=== PATIENT | female | born 1940 | race Caucasian/White ===

== ENCOUNTER 2016-07-19 01:52 | Emergency (ER) | payer MEDICARE, BC ==
[~2016-07-19] VITALS: Ht 170.2 cm; Wt 78.1 kg
[~2016-07-19 01:52] MED LIST: NO KNOWN MEDICATIONS
[2016-07-19 01:54] VITALS: Ht 170.2 cm; Wt 78.1 kg
--- OUTSIDE RECORDS SUMMARY | 2016-07-19 01:56 | XMS REPORT | Continuity of Care Document ---
Author Author [facility] Organization [facility] Address Unknown Phone Unavailable Support Name Relationship Address Phone ERVIN MACARIO Caregiver [address] [place], [place] [id number] TREMAINE MARKS MD Caregiver [address] [place] [address] [place] [address] CELENA HERNANDEZA Next Of Kin UNK Unknown [phone] Insurance Providers Payer Name Policy Number Subscriber Name Relationship Medicare [id number] Beatriz Pérez 16 Self [employer] Hpk [id number] Beatriz Pérez 16 Self Problems Medical Problems Problem Onset Date Status Knee contusion Unknown Active Knee contusion Unknown Active Medications Medication Dose Route Sig Days/Qty Instructions Order Date Discontinued Date Status Miscellaneous Information 11/11/13 Active Social History Social History Problem Response Recorded Date/Time Smoking Status Never smoker 11/11/2013 10:07pm Hospital Discharge Instructions No hospital discharge instructions. Plan of Care No plan of care. Functional Status Query Response Date Recorded Physical Hygiene Self November 11, 2013 10:07pm Disabilities Visual November 11, 2013 10:07pm Devices Used Glasses November 11, 2013 10:07pm Dressing Self November 11, 2013 10:07pm Ambulation Self November 11, 2013 10:07pm Diet Self November 11, 2013 10:07pm Mental Status Alert Oriented November 11, 2013 10:19pm Disabilities Visual November 11, 2013 10:07pm Devices Used Glasses November 11, 2013 10:07pm Physical Hygiene Self November 11, 2013 10:07pm Dressing Self November 11, 2013 10:07pm Ambulation Self November 11, 2013 10:07pm Diet Self November 11, 2013 10:07pm Allergies, Adverse Reactions, Alerts No known allergies. Immunizations Name Given Type Hx Tetanus, Diptheria, Pertussis N NO OPEN AREA Historical Hx Tetanus, Diptheria, Pertussis N NO OPEN AREA Historical Vital Signs Acute Vital Signs Vital Response Date/Time Temperature (Fahrenheit) 96.9 deg F (96.8 - 99.1) Temperature (Calculated Celsius) 36.02243 degrees C (36.0 - 37.3) Pulse Rate (adult) 75 bpm (60 - 100) Respiratory Rate 18 breaths/min (10 - 20) O2 Sat by Pulse Oximetry 99 % (90 - 100) Blood Pressure 149/47 mm Hg Height 5 ft 6 in Weight 187 lb Body Mass Index 30.0 kg/m^2 Results No known relevant diagnostic tests, laboratory data and/or discharge summary. Procedures No known history of procedures. Encounters Encounter Location Date/Time Departed Emergency Room [facility] 11/11/13 8:24pm Recent Diagnosis
--- OUTSIDE RECORDS SUMMARY | 2016-07-19 01:56 | XMS REPORT | Continuity of Care Document ---
Author Author [facility] Organization [facility] Address Unknown Phone Unavailable Allergies Medications Problems Date Dx Coded Attending Type Code Diagnosis Diagnosed By 07/13/2015 Alex Andersen MD 401.1 Essential hypertension 07/13/2015 Alex Andersen MD F 244.9 Hypothyroidism 07/13/2015 Alex Andersen MD 737.30 Scoliosis 07/13/2015 Alex Andersen MD 737.30 Scoliosis 07/13/2015 Alex Andersen MD F 272.4 Hyperlipidemia 07/13/2015 Alex Andersen MD F 272.4 Hyperlipidemia 07/13/2015 Alex Andersen MD F 530.81 GERD 11/05/2015 Alex Andersen MD F 112.3 Candidal intertrigo 01/10/2016 Alex Andersen MD F 787.01 Nausea and vomiting 01/18/2016 Alex Andersen MD F 789.66 Epigastric tenderness 02/19/2016 Alex Andersen MD V70.0 Health checkup 02/20/2016 Alex Andersen MD F 427.89 Irregular pulse 04/29/2016 Alex Andersen MD F 786.2 Cough 04/29/2016 Alex Andersen MD F 465.9 Upper respiratory infection 06/24/2016 Alex Andersen MD F 719.45 Hip pain 07/04/2016 Alex Andersen MD F 724.03 Spinal stenosis, lumbar region, with neurogenic claudication Procedures Code Description Performed By Performed On [id number] Follow up appointment in 4 months 07/13/2015 [facility] 30 minute visit Medicare Wellness 07/13/2015 63601 Office visit - new pt, level 3 07/13/2015 93987 Office/outpatient visit; established patient, level 2 11/05/2015 71968 Office/outpatient visit; established patient, level 3 01/10/2016 28594 Office/outpatient visit; established patient, level 3 01/17/2016 G0439 Annual wellness visit, includes a PPPS, subsequent visit 02/19/2016 01268 Screening visual acuity, quantitative, bilateral 02/19/2016 02234 Pure tone audiometry (threshold); air only 02/19/2016 27159 Visual function screening, visual acuity, ocular alignment, color/field of vision T contrast G0439 Annual wellness visit, includes a PPPS, subsequent visit 02/19/2016 91728 Collection of venous blood by venipuncture 02/20/2016 83354 Comprehensive metabolic panel (Albumin, Bilirubin, Ca, CO2, Cl, Creatinine , Glu, alkaline phosphatas 02/20/2016 34794 Lipid panel (total cholesterol, HDL, triglycerides) 02/20/2016 04329 Complete blood count (CBC), automated (Hgb, Hct, RBC, WBC, platelets) and automated differential WBC 02/20/2016 54863 Thyroid stimulating hormone (TSH) 02/20/2016 83659 Immunization administration; one vaccine 02/20/2016 59864 Pneumococcal conjugate vaccine, 13 valent, for intramuscular use 02/20/2016 21976 Blood, occult, fecal Hgb by immunoassay, qual, feces 02/20/2016 19371 Office/outpatient visit; established patient, level 3 04/29/2016 10246 MRI lumbar spine without contrast 06/25/2016 [id number] Follow up appointment in 2 weeks 06/25/2016 32526 Office/outpatient visit; established patient, level 4 06/25/2016 76321 MRI lumbar spine without contrast 07/03/2016 92166 Office/outpatient visit; established patient, level 4 07/03/2016 [id number] Follow up appointment in 2 weeks 07/03/2016 REFER Set up patient referral to a supervisor home energy consultant 07/04/2016 Results Encounters ACCT No. Visit Date/Time Discharge Status Pt. Type Provider Facility Loc./Unit Complaint [id number] 07/04/2016 08:21:22 2016 09:01:00 DIS Out[facility] , Alex SMALLWOOD
--- NOTE | 2016-07-19 02:08 | NUR ---
AT BEDSIDE DR JACKMAN AT BEDSIDE TO INSERT RHINO-ROCKET IN LEFT NARE
--- NOTE | 2016-07-19 02:23 | ERPDOC ---
Departure Disposition Decision Date: Jul 19, 2016 Disposition Decision Time: : Disposition: 01 DISCHARGED HOME, SELF-CARE Impression Impression Impression: Primary Impression: Left-sided epistaxis Severity: Moderate Condition: Improved Seen By: Physician only Referrals: Massimo MARKS MD (Family) Patient Instructions: Nosebleed (ED) Problems/Meds/Labs Reviewed?: Yes Medications reviewed and manag: Yes Additional Instructions: Follow-up with her primary care provider on Thursday or Thursday to have the Rhino Rocket removed. Follow up care ordered?: Yes Mental Status: Alert HPI General Chief Complaint: Nosebleed Stated Complaint: NOSE BLEED Time Seen by Provider: 02:01 HPI Nosebleed Initial Comments 75-year-old female with nosebleed 2 hours. She has tried to stop the bleeding by direct pressure over the 2 hour period but has not been able to stop it. She does not take a blood thinner, other than a daily aspirin. No other concerns at this time. Allergies: Coded Allergies: No Known Drug Allergies (Verified Allergy, Unknown, 07/19/16) Past History Patient Medical History Problem List Updates: Hypertension Past Medical History Metabolic: hypothyroidism Surgical History Reproductive/: hysterectomy Vaccines Hx Tetanus, Diptheria, Pertuss: No (NO OPEN AREA) Social History Smoking Status: Never smoker Substance Use Type: does not use Alcohol Intake: none Record Review Pertinent history updated: Yes Review of Systems ENMT Nose: see HPI All other Systems All Other Systems: Reviewed and Negative Exam General General Nourishment: well nourished, well developed, appears stated age, adult General Body Habitus: well groomed Vital Signs: Temperature: 97.4, Source: Temporal, Heart Rate: 91, Respiratory Rate: 16, BP: 153/72, Pulse Oximetry: 96 Height (Feet): 5 Height (Inches): 7.00 Fastrak Nosebleed Nose: ecchymosis (left-sided), erythema, swelling Mouth/Pharynx: amt of blood in pharynx (minimal), blood in pharynx Respiratory (brief) Respiratory Brief: FOUND: clear all maldonado, equal bilaterally Cardiovascular (brief) Cardiac Brief: FOUND: regular rate, regular rhythm Capillary Refill: <2 sec Neurologic RN Documented GCS Eye Opening: Verbal: Motor: Total: Differential Diagnoses Considering: Dry Nasal Mucosa, Hypertension, Septal Hematoma, Other (epistaxis) Procedures Nosebleed Treatment 5.5 cm anterior Rhino Rocket placed 5 cc air used for insufflation. Progress Progress Progress Nose was cleaned, pressure applied but patient was very uncomfortable with the amount of bleeding she had. We discussed options to to go straight to the Rhino Rocket, which I agreed with. 5.5 cm Rhino Rocket was placed in the left nostril after soaking appropriately. Inflated with 5 cc total air. Patient's bleeding slowed and stopped. She will be discharged to follow-up with her primary care provider on Thursday or Thursday to have the rocket removed. Return if bleeding becomes uncontrolled. IRMA JACKMAN MD Jul 19, 2016 02:23
[2016-07-19] MEDS ORDERED: ASPI81TA2 PO (02:26)
[2016-07-19] MEDS ORDERED: ESOM40CA PO (02:26)
[2016-07-19] MEDS ORDERED: LEVO88TA4 PO (02:26)
[2016-07-19] MEDS ORDERED: ATOR40TA PO (02:26)
[2016-07-19] MEDS ORDERED: TRIA1TAB3 PO (02:26)
[2016-07-19] MEDS ORDERED: VERA100C2 PO (02:26)
--- OUTSIDE RECORDS SUMMARY | 2016-07-19 02:41 | XMS REPORT | Continuity of Care Document ---
Author Author [facility] Organization [facility] Address Unknown Phone Unavailable Support Name Relationship Address Phone ERVIN MACARIO Caregiver [address] [place], [place] [phone] TREMAINE MARKS MD Caregiver [address] [place] [address] [place] [address] CELENA HERNANDEZA Next Of Kin UNK Unknown [phone] Insurance Providers Payer Name Policy Number Subscriber Name Relationship Medicare [id number] Beatriz Pérez 16 Self [employer]na Hpk [id number] Beatriz Pérez 16 Self Problems Medical Problems [...] F (96.8 - 99.1) Temperature (Calculated Celsius) 36.92049 degrees C (36.0 - 37.3) Pulse Rate [...] Encounters Encounter Location Date/Time Departed Emergency Room [facility] 11/11/13 8:24pm Recent Diagnosis
--- OUTSIDE RECORDS SUMMARY | 2016-07-19 02:42 | XMS REPORT | Continuity of Care Document ---
Author Author [facility] Organization [facility] Address Unknown Phone Unavailable Allergies Medications Problems Date Dx Coded Attending Type Code Diagnosis Diagnosed By 07/13/2015 Alex Andersen MD 401.1 Essential hypertension 07/13/2015 Aelx Andersen MD F 244.9 Hypothyroidism 07/13/2015 Alex [...] Follow up appointment in 4 months 07/13/2015 [facility] 30 minute visit Medicare Wellness 07/13/2015 82121 Office visit - new pt, level 3 07/13/2015 60625 Office/outpatient visit; established patient, level 2 11/05/2015 69429 Office/outpatient visit; established patient, level 3 01/10/2016 26333 Office/outpatient visit; established patient, level 3 01/17/2016 G0439 Annual wellness visit, includes a PPPS, subsequent visit 02/19/2016 80472 Screening visual acuity, quantitative, bilateral 02/19/2016 36260 Pure tone audiometry (threshold); air only 02/19/2016 43383 Visual function screening, visual acuity, ocular alignment, color/field of vision T contrast G0439 Annual wellness visit, includes a PPPS, subsequent visit 02/19/2016 84556 Collection of venous blood by venipuncture 02/20/2016 36621 Comprehensive metabolic panel (Albumin, Bilirubin, Ca, CO2, Cl, Creatinine , Glu, alkaline phosphatas 02/20/2016 37199 Lipid panel (total cholesterol, HDL, triglycerides) 02/20/2016 60523 Complete blood count (CBC), automated (Hgb, Hct, RBC, WBC, platelets) and automated differential WBC 02/20/2016 27995 Thyroid stimulating hormone (TSH) 02/20/2016 51377 Immunization administration; one vaccine 02/20/2016 11636 Pneumococcal conjugate vaccine, 13 valent, for intramuscular use 02/20/2016 22224 Blood, occult, fecal Hgb by immunoassay, qual, feces 02/20/2016 87669 Office/outpatient visit; established patient, level 3 04/29/2016 65994 MRI lumbar spine without contrast 06/25/2016 [id number] Follow up appointment in 2 weeks 06/25/2016 90246 Office/outpatient visit; established patient, level 4 06/25/2016 95651 MRI lumbar spine without contrast 07/03/2016 21207 Office/outpatient visit; established patient, level 4 07/03/2016 [id number] Follow up appointment in 2 weeks 07/03/2016 REFER Set up patient referral to a community resource consultant 07/04/2016 Results Encounters ACCT No. Visit Date/Time Discharge Status Pt. Type Provider Facility Loc./Unit Complaint [id number] 07/04/2016 08:21:22 2016 09:01:00 DIS Outpatient [facility] , Alex SMALLWOOD
[2016-07-19 02:48] VITALS: BP 160/70; PULSE 85; RESP 16; TEMP 97.4; O2SAT 96
--- NOTE | 2016-07-19 02:48 | NUR ---
DEPART PT GIVEN DI FOR NOSEBLEED AND F/U. PT VERBALIZES UNDERSTANDING. RHINO ROCKET IN PLACE LEFT NARE - NO BLOOD COMING FROM EITHER NARE AT THIS TIME. PERSONAL BELONGNIGS GATHERED. PT ESCORTED/AMBULATED TO ED EXIT - GAIT STABLE, NO SIGN OF DISTRESS.
== END 2016-07-19 02:48 | disposition home or self-care (01) ==
LOC: ED 01:52
DX: R04.0 Epistaxis (principal)
CPT/HCPCS: 30901